=== PATIENT | female | born 1985 | race Caucasian/White ===

== ENCOUNTER 2018-02-14 00:44 | Emergency (ER) | payer MEDICAID ==
[2018-02-14 01:28] LABS: URINE BLOOD (Dip) POC 2+ (NEGATIVE); URINE GLUCOSE (Dip) POC Negative (NEGATIVE); URINE KETONES (Dip) POC Negative (NEGATIVE); URINE LEUKOCYTE EST (Dip) POC Negative (NEGATIVE); URINE NITRITE (Dip) POC Negative (NEGATIVE); URINE TOTAL PROTEIN POC Negative (NEGATIVE)
[2018-02-14 02:11] LABS: ADD MAN DIFF? NO
[2018-02-14 02:13] LABS: BASOPHILS % 0.3 % (0.0-2.0); EOSINOPHILS # 0.2 10^3/ul (0.0-0.5); EOSINOPHILS % 2.3 % (0.0-7.0); HEMOGLOBIN 13.5 g/dl (12.0-16.0); LYMPHOCYTES % 27.8 % (15.0-51.0); MEAN CORPUSCULAR HEMOGLOBIN 30.2 pg (29.0-33.0); MEAN CORPUSCULAR HGB CONC 33.8 g/dl (32.0-37.0); MEAN CORPUSCULAR VOLUME 89.5 fl (82.0-101.0); MEAN PLATELET VOLUME 10.3 fl (7.4-10.4); MONOCYTE # 0.7 10^3/ul (0.3-0.9); NEUTROPHIL # 4.4 10^3/ul (1.6-7.5); NEUTROPHILS % 60.3 % (39.0-77.0); PLATELET COUNT 256 10^3/UL (140-415); RED BLOOD COUNT 4.47 10^6/ul (4.20-5.40); RED CELL DISTRIBUTION WIDTH 13.2 % (11.5-14.5)
[2018-02-14 02:13] LABS: WHITE BLOOD COUNT 7.4 10^3/ul (4.8-10.8)
[2018-02-14 03:37] LABS: ALANINE AMINOTRANSFERASE 55 IU/L (13-69); ALBUMIN 4.6 g/dl (3.3-4.9); ALBUMIN/GLOBULIN RATIO 1.31; ALKALINE PHOSPHATASE 75 IU/L (42-121); ANION GAP 19 (8-16); ASPARTATE AMINO TRANSFERASE 37 IU/L (15-46); BILIRUBIN,INDIRECT 0.1 mg/dl (0-1.1); BILIRUBIN,TOTAL 0.1 mg/dl (0.2-1.3); BLOOD UREA NITROGEN 14 mg/dl (7-20); CALCIUM 9.3 mg/dl (8.4-10.2); CARBON DIOXIDE 21 mmol/L (21-31); CHLORIDE 111 mmol/L (97-110); CREATININE 0.54 mg/dl (0.44-1.00); GLUCOSE 100 mg/dl (70-220); POTASSIUM 4.1 mmol/L (3.5-5.1); SODIUM 147 mmol/L (135-144); TOTAL PROTEIN 8.1 g/dl (6.1-8.1)
[2018-02-14] MEDS: KETOROLAC 60 MG INJ IM (04:58)
== END 2018-02-14 05:23 | disposition home or self-care (01) ==
LOC: FTE 00:44
DX: N30.01 Acute cystitis with hematuria (principal)
CPT/HCPCS: 36415; 74176; 80053; 81003; 81025; 85025; 96372; 99285-25